=== PATIENT | male | born 1930 | race Caucasian/White ===

== ENCOUNTER 2016-06-07 20:47 | Emergency (ER) | payer MEDICARE, BC ==
[~2016-06-07 20:47] MED LIST: ASPIRIN EC81 MG PO; AVODART0.5 MG PO; COLACE-DPS100 MG PO; CORDARONE DPS200 MG PO; COUMADIN7.5 MG PO; FLOMAX DPS0.4 MG PO; LOPRESSOR DPS12.5 MG PO; LOVENOX DP60 MG/0.6 SQ; MAALOX DPS30 ML PO; MIRALAX PACKET17 GM PO; NEURONTIN600 MG PO; NITROSTAT0.4 MG SL; PRILOSEC40 MG PO; PROZAC40 MG PO; RESTORIL DPS15 MG PO; SURFAK DPS240 MG PO; TYLENOL DPS325 MG PO
--- NOTE | 2016-06-13 15:06 | ER ---
ADMIT: 06/07/2016 RM/LOC: ER [facility] MR#: [id number] [address] [address] LEDYCHIDI PHIL Jooj [address] [place] [address] Emergency Room Report SEX: M AGE: 85 : 1930 DATE: 06/07/2016 TIME: 2046 Please refer to my T-sheet for complete H and P. HISTORY OF PRESENT ILLNESS: Briefly, the patient is an 85-year-old who earlier in the day had a transurethral resection of his prostate and a cystoscopy done by Dr. Lewis in [place]. He has not urinated since. He comes in saying he feels like he really needs to go, feels like his abdomen is swollen in his bladder area. No other complaints. He is on Coumadin, but he has been holding that secondary to the procedure today. He feels fine otherwise. PHYSICAL EXAMINATION: VITAL SIGNS: Blood pressure 154/76, pulse 50, respirations 16, temp 96.2, saturating 97%. GENERAL: No acute distress. HEENT: Grossly normal. ABDOMEN: He has a fullness in the bladder area. EMERGENCY DEPARTMENT COURSE: We went ahead and did a bladder scan, it showed greater than 600 mL. We placed the Rodrigues that was significantly blood tinged, no clots. We did flush it once, it then cleared to councilperson pink. Patient tolerated well. He was sent for leg bag and ready for discharge. ASSESSMENT: Urine retention, status post transurethral resection of the prostate. PLAN: Leave the Rodrigues in place. Return if problems with the Rodrigues plugs. Call [place] tomorrow and return if worse. Continue medications and the antibiotic. Alex Quijano MD/ james JOB #: [id number] CC: Robert Bates MD, Attending Physician Michael Valdez MD, Family Physician Silke Lewis MD
[2016-09-14] MEDS ORDERED: LUPRON DEPOT30 MG IM (10:46)
[2016-09-14] MEDS ORDERED: COUMADIN5 MG PO (10:49)
[2016-09-14] MEDS ORDERED: VITAMIN D-32000 UNI1 PO (10:50)
[2016-09-14] MEDS ORDERED: OYSTER SHELL C500 MG PO (10:50)
[2016-09-14] MEDS ORDERED: CORDARONE DPS200 MG PO ×2 (10:51→10:53)
[2016-09-14] MEDS ORDERED: ZEBETA5 MG PO (10:53)
[2016-09-14] MEDS ORDERED: IMDUR DPS30 MG PO (10:54)
== END 2016-06-07 21:40 | disposition home or self-care (01) ==
LOC: ER 20:47
DX: R33.9 Retention of urine, unspecified (principal); Z86.73 Personal history of transient ischemic attack (TIA), and cerebral infarction without residual deficits; Z79.899 Other long term (current) drug therapy; Z98.890 Other specified postprocedural states

== ENCOUNTER 2016-09-10 04:38 | Inpatient (IN) | payer MEDICARE, BC ==
[~2016-09-10] VITALS: Ht 185.4 cm; Wt 90.9 kg
--- NOTE | ~2016-09-10 | CST ---
Cardiac Perfusion Imaging Demographics Patient Name ERIC Uribe Gender Male Patient Number [id number] Race Visit Number [id number] Ethnicity Corporate ID Room Number 420 Accession Number [id number] Height 73 inches Date of 1930 Weight 195 pounds Age 85 year(s) BSA 2.13 m Referring Physician Kerry KUNZ BMI 25.73 kg/m Pedrito Rodriguez MD Interpreting Physician [facility] Date of study 09/13/2016 Kerry Major Supervising MD/MLP Kerry DAVIS Technologist Angy Major Ordering Physician Stress pest technician Stress ECG Reading [facility] Nurse Kanchan Uriostegui Physician Kerry Solis The procedure was explained in detail to the patient. Risks, complications and alternative treatments were reviewed. Written consent was obtained. Medications Reviewed with Patient prior to Procedure. Procedure Procedure Type: Nuclear Stress Test:Pharmacological, Lexiscan Procedure Start time: 09/13/2016 08:00 Indications: Chest pain. Risk Factors The patient risk factors include:peripheral arterial disease, cerebrovascular disease, former tobacco use, treated hypercholesterolemia, diabetes mellitus and dyslipidemia. Conclusions Summary Perfusion Images: The overall quality of the study is good. Left ventricular cavity is noted to be normal on the stress and normal on the rest images. There is no evidence of abnormal lung activity. The right ventricle is not visualized an cannot be assessed. Stress SPECT images reveal a small sized area of mild decreased isotope uptake involving the mid to distal inferolateral wall of the left ventricle. In addition, there is a small sized area of mild decreased isotope uptake involving the mid to distal anterior wall. Rest SPECT images reveal homogeneous tracer distribution Gated SPECT imaging reveals normal thickening and normal wall motion. Overall left ventricular ejection fraction was calculated to be normal at 64%. Impression 1. No ECG evidence of ischemia with Lexiscan infusion. 2. Myocardial perfusion imaging is mildly abnormal. 3. The images reveal a mild reversible defect in the mid to distal inferolateral wall and anterior wall consistent with ischemia . 4. Overall left ventricular systolic function was normal. 5. This is a low to intermediate risk stress test. 6. There are no previous studies for comparison . Stress Protocols Resting ECG Sinus bradycardia. Nonspecific ST-T wave changes. Resting HR:47 bpm Resting BP:118/66 mmHg Stress Protocol:Pharmacologic Predicted HR: 133 bpm Test duration: 06:00 min Reason for termination:Infusion complete ECG Findings No ECG changes suggestive of ischemia. Arrhythmias PAC's Symptoms No symptoms with Lexiscan infusion. Complications Procedure complication: None. Stress Interpretation Negative pharmacologic stress ECG for ischemia. Imaging Results Summed scores - Summed stress score: 1 - Summed rest score: 0 - Summed difference score: 1 Stress ejection Ejection fraction:64 % EDV :107 ml ESV :38 ml Stroke volume :69 ml LV mass :131 gr Imaging Protocols Rest Stress Isotope:Tc99m Myoview IV Isotope: Tc99m Myoview IV Isotope dose:10.2 mCi Isotope dose:32.4 mCi Date:09/13/2016 06:30 Date:09/13/2016 08:15 Technique: SPECT Technique: Gated Supine SPECT Supine IV remains in place after procedure. Scan Time:45-60 minutes post Scan Time:45-60 minutes post injection injection Procedure Medications - Regadenoson (Lexiscan) 0.4 mg IV over 10-15 sec. I.V. 0.4 mg. Medications administered per verbal order and read back to physician prior to administration. Medical History Admission Data Admission date: 09/10/2016 Admission Time: 05:53 Hospital Status: Inpatient. Signatures
--- NOTE | ~2016-09-10 | ECH ---
Transthoracic Echocardiography Report (TTE) Demographics Patient Name PHIL REYES Date of Study 09/10/2016 Patient Number [id number] Visit Number [id number] Date of 1930 Room Number 420 Accession Number [id number] Gender Male Age 85 year(s) Referring José Miguel Rodriguez MD Brushing Operator [place] [facility] Physician Physician Interpreting King Jaret Thibodeaux Window Shade Installer Physician Supervising Ordering Physician King Jaret Thibodeaux MD/KJ KUNZ Nurse Stress Software Project Engineer Conclusions Summary Technically fair exam. The estimated left ventricular ejection fraction is 60-65%. Moderate to severe left ventricular hypertrophy. Mild to moderate mitral regurgitation by color Doppler. Trivial pericardial effusion. Procedure Type of Study TTE procedure:Echo Complete SF. Procedure Date Date: 09/10/2016 Start: 01:59 PM Technical Quality: Adequate visualization Indications:Atypical Chest Pain, paroxysmal a-fib and Peripheral vascular disease. Appropriate Use Criteria: 9 Height: 73 inches Weight: 195 pounds BSA: 2.13 m Rhythm: Irregular HR: 50 bpm BP: 133/52 mmHg M-Mode/2D Measurements LV Diastolic Dimension: 4.19 cm LV Systolic Dimension: 2.81 cm LV Septum Diastolic: 1.92 cm LV PW Diastolic: 1.52 cm AO Root Dimension: 2.85 cm Cardiac Output: 3.43 l/min LA Dimension: 4.49 cm Cardiac Index: 1.61 l/min*m RV Diastolic Dimension: 3.14 cm LA volume index: 24 ml/m LVOT: 1.72 cm LVOT VTI: 29.57 cm RV Base: 3.3 cm LV Stroke volume: 68.67 ml RV Mid: 2.1 cm LV Stroke volume index: 32.24 ml/m RV Length: 6.8 cm TAPSE: 2.5 cm TDI-S': 11 cm/s Doppler Measurements AV Peak Velocity: 1 m/s MV Peak E-Wave: 0.93 m/s AV Peak Gradient: 4 mmHg MV Peak A-Wave: 0.44 m/s AV Mean Gradient: 2.75 mmHg MV E/A Ratio: 2.11 LVOT Peak Velocity: 0.99 m/s MV P1/2t: 70.9 msec AV Area (Continuity):2.51 cm MV Deceleration Time: 244.5 msec TR Velocity:2.14 m/s MV Area (PHT): 3.1 cm TR Gradient:18.32 mmHg PV Peak Velocity: 0.67 m/s Estimated RAP:5 mmHg PV Peak Gradient: 1.77 mmHg Estimated RVSP: 23 mmHg Estimated PASP: 23.32 mmHg RA Area: 12.66 cm Findings Left Ventricle The left ventricle is normal in size . Moderate to severe left ventricular hypertrophy. Diastolic assessment reveals normal relaxation. Right Ventricle Normal right ventricle structure and function. Left Atrium Normal left atrial size. Right Atrium Normal right atrial size. Mitral Valve Normal mitral valve structure and function. Mild to moderate mitral regurgitation by color Doppler. Aortic Valve Normal aortic valve structure and function. Tricuspid Valve Normal tricuspid valve structure and function. Trivial tricuspid regurgitation by color Doppler. Pulmonic Valve Normal pulmonic valve structure and function. Pericardial Effusion Trivial pericardial effusion. Miscellaneous Visualized portions of the aortic root and ascending aorta appear normal in size. Pleural Effusion No evidence of pleural effusion. Signature
[2016-09-14] MEDS ORDERED: LUPRON DEPOT30 MG IM (10:46)
[2016-09-14] MEDS ORDERED: COUMADIN5 MG PO (10:49)
[2016-09-14] MEDS ORDERED: VITAMIN D-32000 UNI1 PO (10:50)
[2016-09-14] MEDS ORDERED: OYSTER SHELL C500 MG PO (10:50)
[2016-09-14] MEDS ORDERED: CORDARONE DPS200 MG PO ×2 (10:51→10:53)
[2016-09-14] MEDS ORDERED: ZEBETA5 MG PO (10:53)
[2016-09-14] MEDS ORDERED: IMDUR DPS30 MG PO (10:54)
--- NOTE | 2016-09-14 20:15 | ER ---
ADMIT: 09/10/2016 RM/LOC: ER [facility] MR#: [id number] [address] [address] PHIL REYES [address] [place] [address] Emergency Room Report SEX: M AGE: 85 : 1930 DATE: 09/10/2016 TIME: 04:38. Please refer to my T-sheet for complete H and P. Briefly, the patient is an 85-year-old, who started having some chest pain tonight. Does know exactly what time. By the time he gets here, it is almost gone. It did radiate up to his shoulder. He did feel some shortness of breath and sweaty. He has a known history of atrial fib. He is anticoagulated. He does take an aspirin every day, but had it earlier this morning. PHYSICAL EXAMINATION: VITAL SIGNS: His blood pressure 105/58, pulse 115, respirations 16, temp 96.9, and sat 98%. GENERAL: He is in no acute distress. HEENT: Grossly normal. LUNGS: Clear. HEART: Irregular regular. Slightly tachycardic. ABDOMEN: Soft. EXTREMITIES: No cyanosis. No edema. SKIN: No rash. EMERGENCY DEPARTMENT COURSE: EKG was atrial fibrillation, rate 113. No hyperacute changes. CBC was normal except hemoglobin 12.9. Chemistries normal except glucose 144. Troponin was negative. INR was 1.38. Chest x-ray was negative. He was given aspirin and Maalox. His pain was resolved. He was stable. I talked to Dr. Muñiz and Dr. Patel. They will admit to the hospital. ASSESSMENT: 1. Chest pain. 2. Atrial fibrillation with a known history of such. PLAN: Admit to the hospital. Alex Quijano MD/ james JOB #: [id number] CC: Alex Quijano MD, Attending Physician Michael Valdez MD, Family Physician
--- NOTE | 2016-09-20 08:47 | HP ---
ADMIT: 09/10/2016 RM/LOC: 420 [facility] MR#: [id number] [address] [address] PHIL REYES [address] [place] [address] History and Physical SEX: M AGE: 85 : 1930 DATE OF SERVICE: CHIEF COMPLAINT: Chest pain. HISTORY OF PRESENT ILLNESS: This is an 85-year-old male with a past medical history significant for atrial fibrillation (on Coumadin), history of TIA, coronary artery disease, and BPH admitted with chest pain. The patient reports that yesterday afternoon around 11, he began experiencing on and off left-sided chest discomfort. He denies any radiation of pain or associated nausea, vomiting, diaphoresis, or shortness of breath. He has had some chronic left shoulder pain and does not think that this has been associated with his chest pain. In the middle of the night, patient got up to use the restroom, but was too weak to make it to the toilet and had an accident all over the floor. He called his daughter who came over and thought that his color looked bad, so she brought him to the Emergency Department. On the way to the ER, she did give him some nitroglycerin and thought that he did improve a little. Upon arriving to the ER, an EKG was performed that showed the patient was in AFib with a rate of 113 and his cardiac enzymes were essentially normal. He was given Maalox and aspirin and is now chest pain free. PAST MEDICAL HISTORY: 1. Atrial fibrillation, on Coumadin. He does follow with [facility]. 2. BPH. 3. Coronary artery disease. 4. History of TIA. 5. Neuropathy. 6. Depression. 7. Constipation. PAST SURGICAL HISTORY: Right carotid endarterectomy. MEDICATIONS: 1. Aspirin 81 mg daily. 2. Prozac 40 mg daily. 3. Colace 100 mg b.i.d. 4. MiraLax daily. 5. Gabapentin 600 mg t.i.d. 6. Avodart 0.5 mg at bedtime. 7. Flomax 0.4 mg at bedtime. 8. Prilosec 40 mg at bedtime. 9. Lupron 30 mg IM every 4 months. 10.Coumadin 7.5 mg Mondays and Fridays. 11.Coumadin 5 mg on Tuesday, Tuesday, , Tuesday, and Tuesday. 12.Restoril 15 mg at bedtime p.r.n. 13.Maalox 30 mL every 6 hours p.r.n. 14.Surfak 240 mg b.i.d. p.r.n. 15.Tylenol 650 mg every 4 hours p.r.n. 16.Nitrostat 0.4 mg every 5 minutes as needed x3. ADMIT: 09/10/2016 RM/LOC: 420 [facility] MR#: [id number] [address] [place] [address] PHIL REYES [address] [place] [address] History and Physical SEX: M AGE: 85 : 1930 ALLERGIES: NONE. SOCIAL HISTORY: Denies tobacco, alcohol, or illegal drug use. He does live next to his daughter in a duplex. FAMILY HISTORY: Noncontributory. REVIEW OF SYSTEMS: 10-point review of systems was reviewed and negative other than that stated above in the HPI. PHYSICAL EXAM: VITAL SIGNS: Blood pressure 129/64, pulse 78, respirations 20, temp 96.3, and saturating 97% on room air. GENERAL: He is alert and oriented x3. No acute distress. HEART: Irregularly irregular. LUNGS: Clear to auscultation in all thorne. ABDOMEN: Soft, nontender, nondistended. Positive bowel sounds. EXTREMITIES: No edema. He does have some tenderness to the left shoulder when palpating it. LABORATORY DATA: Sodium 142, potassium 4.1, creatinine 1.3. Troponin 0.018. CK 88 and MB 1.1. EKG and chest x-ray were be reviewed. INR is 1.38. White count 6.2, hemoglobin 12.9, and platelets 203. ASSESSMENT/PLAN: 1. Atypical chest pain. 2. Atrial fibrillation on Coumadin. 3. History of coronary artery disease. 4. History of transient ischemic attack. 5. Benign prostatic hypertrophy. 6. Subtherapeutic INR. 7. Neuropathy. 8. Do not resuscitate/do not intubate. We will plan to trend his enzymes today. I also consulted Cardiology for medical management of his chronic chest pain, atrial fibrillation, and history of bradycardia. Of note, he has recently stopped his amiodarone and his metoprolol and I think that was because of sudden bradycardia episodes that he was having. We will go ahead and repeat his INR in the morning as well as basic labs and continue all of his home medications for now. Gillian Muñiz DO Resident / Michael Valdez MD / james JOB #: [id number] CC: Michael Valdez, Attending Physician Michael Valdez, Family Physician
--- NOTE | 2016-09-27 12:53 | DS ---
ADMIT: 09/13/2016 RM/LOC: 420 [facility] MR#: [id number] [address] [address] PHIL REYES [address] [place] [address] Discharge Summary SEX: M AGE: 85 : 1930 ADMISSION DATE: 09/13/2016 DISCHARGE DATE: 09/13/2016 DISCHARGE DIAGNOSES: 1. Atypical chest pain. 2. Persistent atrial fibrillation. 3. Peripheral vascular disease. 4. Diabetes mellitus. 5. Hyperlipidemia. 6. Gastroesophageal reflux disease. 7. BPH (benign prostate hypertrophy). 8. History of TIA (transient ischemic attack). CONSULT: Cardiology. HISTORY OF PRESENT ILLNESS: This is an 85-year-old male who came in with complaints of chest pain. The patient reports that on the afternoon of September 09 around 11:00 a.m., he began experiencing on and off left-sided chest discomfort. He denied any radiation of the pain or associated nausea, vomiting, diaphoresis, or shortness of breath. He had had some chronic left shoulder pain and this was bothering him as well, but he did not think it was associated with the chest pain. In the middle of the night, he got up to use the restroom, but was too weak to make it to the toilet and ended up having an accident. He called his daughter who came over and thought that his color looked bad so she brought him to the ER. He was given some nitroglycerin on the way over and she thought that that helped. Upon arriving to the ER, an EKG was done that showed the patient was in atrial fibrillation with a rate of 113 and his initial cardiac enzymes were normal. He was given Maalox and aspirin and then was chest pain free. HOSPITAL COURSE: Upon admission, three sets of cardiac enzymes were ordered. Cardiology was also consulted for medication management. The hand folder ordered an echo that showed an ejection fraction of 60-65%. He was also started on amiodarone at 400 mg p.o. b.i.d., as well as a beta dany for rate control. He did have a troponin that came back highest at 0.552 so he was started on a heparin drip. He did not have any more episodes of chest pain even when walked with PT, so it was not thought that he would need a catheterization at this time. The hand folder did feel that a nuclear stress test would be beneficial in order to risk stratify him. So this was done, which showed low risk and mild ischemia. He had a couple episodes of sinus bradycardia and so his amiodarone and beta dany were decreased. It was felt that he was safe to return to home with the help of care by his daughter, so he was discharged back to home on 09/13/2016. DISCHARGE MEDICATIONS: 1. Aspirin 81 mg p.o. daily. 2. Avodart 0.5 mg p.o. at night. 3. Colace 100 mg p.o. b.i.d. 4. Cordarone 200 mg p.o. b.i.d. ADMIT: 09/13/2016 RM/LOC: 420 [facility] MR#: [id number] [address] [address] [place] [address] Discharge Summary SEX: M AGE: 85 : 1930 5. Coumadin 7.5 mg p.o. Tuesday and Tuesday at 1:00. 6. Coumadin 5 mg p.o. Tuesday, Tuesday, Tuesday, , Tuesday at 1:00. 7. Flomax 0.4 mg p.o. at night. 8. Lopressor 12.5 mg p.o. b.i.d. 9. MiraLAX 17 g p.o. daily. 10.Neurontin 600 mg p.o. t.i.d. 11.Oyster shell calcium 500 mg p.o. b.i.d. 12.Omeprazole 40 mg p.o. daily. 13.Prozac 20 mg 2 tabs p.o. daily. 14.Vitamin D 2000 units p.o. daily. 15.Lupron 30 mg IM at night. 16.Colace as needed. 17.Maalox as needed. 18.Restoril drops 15 mg p.o. at night as needed. 19.Surfak as needed. DISCHARGE INSTRUCTIONS: He is to follow up with Dr. Evangelista at [facility] in one month. He is also to see Dr. Yasir Valdez on September 16 with an INR, BMP, and hemoglobin. Gillian Muñiz DO Resident / Michael Valdez MD / njv JOB #: [id number] CC: Michael Valdez MD, Attending Physician Michael Valdez MD, Family Physician
--- NOTE | 2016-09-27 15:33 | CO ---
ADMIT: 09/10/2016 RM/LOC: [address] [facility] MR#: [id number] [address] PHIL BOLES [address] [place] [address] Consultation SEX: M AGE: 85 : 1930 DATE OF CONSULTATION: 09/10/2016 ATTENDING PHYSICIAN: Michael Valdez CONSULTING PHYSICIAN: Jaret Boles MD REASON FOR CONSULT: Chest pain. This is Lyly Bond RN, scribing for Dr. Jaret Boles. HISTORY OF PRESENT ILLNESS: Mr. Boles is a pleasant 85-year-old male, I have been asked to see in Cardiology consultation by Dr. Michael Valdez for chest discomfort. He has no documented history of coronary artery disease. He is followed at [facility] by Dr. Evangelista for persistent atrial fibrillation on amiodarone therapy and anticoagulation. He was last seen on 03/03 of last year were his amiodarone was decreased from 200 to 100 mg daily. He also has history of peripheral vascular disease, status post right carotid endarterectomy, former tobacco use of a pipe. He has history of hyperlipidemia and diabetes. He has family history of coronary artery disease in his father. Phil presented to [facility] late last night or early this morning with complaints of chest discomfort. He describes an ache that occurred about 11 o'clock last night when he was getting up to go to the bathroom. He also has some left shoulder and joint pain, but he felt this was more intensified during that episode as well. He denies any shortness of breath. He denies any lightheadedness or dizziness. He asked his daughter for assistance and they tried a sublingual nitroglycerin at home, but his symptoms did not resolve. He then decided to proceed to the emergency room. Cardiac enzymes x1 have been negative. Second set is pending. His lab work is essentially unremarkable other than a mild anemia with hemoglobin 12.9. He states that on its own his chest discomfort has slowly resolved. He denies any current chest discomfort, shortness of breath, palpitations, presyncope, peripheral edema, or orthopnea. Of note, during his hospital stay on telemetry, he has gone in and out of sinus rhythm and rate controlled atrial fibrillation throughout. He has not had any rapid ventricular rates. He does report occasionally he can tell that his pulse is irregular. PAST MEDICAL HISTORY: 1. Persistent atrial fibrillation. 2. Right carotid endarterectomy. 3. History of hyperlipidemia. 4. Diabetes. 5. Former tobacco use. 6. Gastroesophageal reflux disease. 7. Hematuria about a month ago. 8. BPH. 9. Lumbar disc disease. 10.Skin cancer. 11.Peripheral neuropathy. ADMIT: 09/10/2016 RM/LOC: [address] [facility] MR#: [id number] [address] PHIL BOLES [address] [place] [address] Consultation SEX: M AGE: 85 : 1930 12.History of TIA. 13.Depression. 14.Anxiety. PAST SURGICAL HISTORY: Includes; 1. Tonsillectomy. 2. Right carotid endarterectomy. 3. Hernia repair. ALLERGIES: NO KNOWN MEDICATION ALLERGIES. MEDICATIONS: Current medications include; 1. Aspirin 81 daily. 2. Avodart 0.5 at bedtime. 3. Colace 100 b.i.d. 4. Coumadin 7.5 on Tuesday and Tuesday and 5 mg other days. 5. Flomax 0.4 at bedtime. 6. MiraLax 17 g daily. 7. Neurontin 600 mg p.o. t.i.d. 8. Calcium 500 p.o. b.i.d. 9. Protonix 40 at bedtime. 10.Prozac 40 daily. 11.Vitamin D 200 units daily. 12.Lupron 30 IM as directed. FAMILY HISTORY: Positive family history of heart disease in father. SOCIAL HISTORY: Phil is . He lives at home. He is retired. His daughter helps him. He denies any special diet, caffeine, alcohol, or drug use. He quit smoking pipe tobacco quite a while ago. REVIEW OF SYSTEMS: GENERAL: Denies fatigue, fever, chills, sweats, rash, or weight loss. EYES: Denies double vision, blurred vision, cataracts, or glaucoma. THROAT, MOUTH, AND EARS: Denies hearing loss or problems with nose, mouth or throat. PULMONARY: Denies cough, sputum production, asthma, emphysema or bronchitis. Denies snoring loudly, wakefulness at night, or fatigue upon awakening. GASTROINTESTINAL: History of gastroesophageal reflux disease, occasional trouble swallowing, but no issues currently. He denies any GI bleeding or gallbladder issues. GENITOURINARY: Recent hematuria about a month ago, requiring intervention with Urology. History of BPH. Denies any troubles with urination currently. MUSCULOSKELETAL: History of lumbar disc disease, history of osteoarthritis. Denies any gout. He does have chronic muscle and joint pain. ENDOCRINE: History of diabetes. Denies thyroid disease. HEMATOLOGY: History of skin cancer. Denies any bleeding issues or anemia ADMIT: 09/10/2016 RM/LOC: [address] [facility] MR#: [id number] [address] [place] [id number] PHIL BOLES [address] [place] [address] Consultation SEX: M AGE: 85 : 1930 currently. NEUROLOGIC: History of TIA, peripheral neuropathy. Denies any seizure. PSYCHIATRIC: History of depression and anxiety. PHYSICAL EXAMINATION: VITAL SIGNS: Blood pressure 129/64, heart rate 78, respirations 20, temperature 96.3, oxygenation 97% on O2. SKIN: [place], warm and dry. EYES: Sclerae clear. No xanthelasmas. ENT: Oral mucosa is pink and moist. No jugular venous distention or carotid bruits. CHEST: Respirations are even and unlabored. Lungs are clear to auscultation. HEART: Irregularly irregular with no murmurs, gallops, or rubs. ABDOMEN: Soft and nontender. MUSCULOSKELETAL: Gait is normal. EXTREMITIES: Peripheral pulses palpable. No clubbing, cyanosis or edema. PSYCHIATRIC: Alert and oriented. Mood and affect are appropriate. DIAGNOSTIC DATA: Sodium 142, potassium 4.1, BUN 20, creatinine 1.3, glucose 144. INR 1.38, CK 88, MB 1.1, troponin 0.018. White blood cell count 6.2, hemoglobin 12.9, hematocrit 38.0, and platelets 203. ASSESSMENT AND PLAN: 1. Chest pain. 2. Paroxysmal atrial fibrillation. 3. Hyperlipidemia. 4. Diabetes. We will check cardiac enzymes x3. He has been in an out of atrial fibrillation. We will increase the amiodarone to 400 mg p.o. b.i.d., and start on beta dany to see if I can promote normal sinus rhythm for him. I will check echocardiogram for any wall motion abnormalities, valvular abnormalities, or decreased ejection fraction. If these symptoms persist with sinus rhythm, then I would consider doing a stress test. He is already on anticoagulation with Coumadin managed by primary care. Thank you for the consultation. I have read and agree with the documentation that has been completed regarding this visit. By signing this record, I attest that the documentation was completed in my physical presence and is an accurate record of the encounter. Lyly Bond RN / Jaret Boles MD / james JOB #: [id number] CC: Michael Valdez, Attending Physician Michael Valdez, Family Physician
== END 2016-09-13 14:36 | disposition home or self-care (01) | DRG 303 ==
LOC: ER 04:38 → 4PCU 05:53
PROVIDERS: ADMIT Family Medicine
DX: I25.119 Atherosclerotic heart disease of native coronary artery with unspecified angina pectoris (principal); E11.42 Type 2 diabetes mellitus with diabetic polyneuropathy; I48.1 Persistent atrial fibrillation; N40.0 Benign prostatic hyperplasia without lower urinary tract symptoms; R79.1 Abnormal coagulation profile; K21.9 Gastro-esophageal reflux disease without esophagitis; F41.9 Anxiety disorder, unspecified; E78.5 Hyperlipidemia, unspecified; M51.9 Unspecified thoracic, thoracolumbar and lumbosacral intervertebral disc disorder; M19.90 Unspecified osteoarthritis, unspecified site; K59.00 Constipation, unspecified; F32.9 Major depressive disorder, single episode, unspecified; Z86.73 Personal history of transient ischemic attack (TIA), and cerebral infarction without residual deficits; Z79.82 Long term (current) use of aspirin; Z79.01 Long term (current) use of anticoagulants; Z87.891 Personal history of nicotine dependence; Z85.828 Personal history of other malignant neoplasm of skin; Z66 Do not resuscitate